=== PATIENT | female | born 1985 | race Caucasian/White ===

== ENCOUNTER 2016-10-09 08:22 | Emergency (ER) | payer OTHER ==
[~2016-10-09] VITALS: Ht 157.5 cm; Wt 90.3 kg
[~2016-10-09 08:22] MED LIST: DEPO-PROVER150 MG/ML IM; PROVENTIL,2.5 MG/3 M IH; VENTOLIN HFA18 GM IH; VICODIN 5-3001 EACH PO
[2016-10-09 09:18] LABS: BASOPHIL COUNT 0.1 K/uL (0-0.1); EOSINOPHIL (%) 1.9 % (0-5); EOSINOPHIL COUNT 0.1 K/uL (0-0.3); HEMATOCRIT 40.9 % (36.0-46.0); IMMATURE GRANULOCYTE (%) 0.3 % (0.0-0.7); IMMATURE GRANULOCYTE COUNT 0.2 K/uL; LYMPHOCYTE COUNT 2.1 K/uL (1.0-2.8); MCH 29.1 PG (29.0-34.0); MCV 88.1 FL (83-99); MEAN PLAT.VOLUME 9.8 uM^3 (9.5-12.4); MONOCYTE (%) 8.2 % (3-12); MONOCYTE COUNT 0.6 K/uL (0-0.8); NEUTROPHIL (%) 60.4 % (45-76); NEUTROPHIL COUNT 4.4 K/uL (1.8-6.4); PLATELET COUNT 299 K/uL (156-360); RBC DIS.WIDTH-CV 12.4 % (11.8-14.6); RBC DIS.WIDTH-SD 39.5 % (39-53); RED BLOOD COUNT 4.64 M/uL (3.80-5.20); WHITE BLOOD COUNT 7.4 K/uL (4.1-10.2)
[2016-10-09 09:29] LABS: CHLORIDE 109 mEq/L (99-109); POTASSIUM 4.3 mEq/L (3.7-5.4); SODIUM 139 mEq/L (136-147)
[2016-10-09 09:30] LABS: GLUCOSE 80 mg/dL (70-99)
[2016-10-09 09:32] LABS: ANION GAP 9 MEQ/L (2-14)
[2016-10-09 09:34] LABS: GFR ESTIMATE (CALCULATED) > 59 mL/min/
[2016-10-09 09:35] LABS: UREA NITROGEN (BUN) 12 mg/dL (9-23)
[2016-10-09 09:36] LABS: D-DIMER ELISA 0.39 mg/L FEU (< 0.57); INTER. NORMALIZED RATIO 1.1; PROTHROMBIN TIME 10.7 (9.2-11.2); PTT 27.2 (25-32)
[2016-10-09 09:39] LABS: TROP-I INTERPRETATION NEGATIVE; TROPONIN-I < 0.01 ng/mL (0.0-0.30)
[2016-10-09 12:08] LABS: TROP-I INTERPRETATION NEGATIVE; TROPONIN-I < 0.01 ng/mL (0.0-0.30)
[2016-10-09 13:03] VITALS: BP 111/83
== END 2016-10-09 13:16 | disposition home or self-care (01) ==
LOC: EME 08:22
PROVIDERS: Emergency Medicine
DX: R07.89 Other chest pain (principal); J40 Bronchitis, not specified as acute or chronic; Z88.1 Allergy status to other antibiotic agents
CPT/HCPCS: 71010; 80048; 84484; 85025; 85379; 85610; 85730; 93005; 99281; 99285; J2405

== ENCOUNTER 2017-09-05 08:23 | Emergency (ER) | payer OTHER ==
[~2017-09-05] VITALS: Ht 160 cm; Wt 80.8 kg
[2017-09-05] MEDS ORDERED: ROBITUSSIN NIG237 ML PO (10:00)
[2017-09-05] MEDS ORDERED: FLONASE16 G1 BOTH NARES (10:00)
[2017-09-05] MEDS ORDERED: TESSALON200 MG PO (10:00)
[2017-09-05 10:09] VITALS: BP 120/74
== END 2017-09-05 10:10 | disposition home or self-care (01) ==
LOC: EME 08:23
DX: J06.9 Acute upper respiratory infection, unspecified (principal); R51 Headache; Z88.1 Allergy status to other antibiotic agents
CPT/HCPCS: 87651 90; 99281; 99284

== ENCOUNTER 2018-04-04 10:49 | Outpatient (CLI) | payer OTHER ==
[~2018-04-04] VITALS: Ht 160 cm; Wt 77.1 kg
[~2018-04-04 10:49] MED LIST changes: +FLONASE16 G1 BOTH NARES; +ROBITUSSIN NIG237 ML PO; +TESSALON200 MG PO
[2018-04-04 11:25] VITALS: BP 103/60
[2018-04-04] MEDS ORDERED: PRENATAL TABLE1 EAC3 PO (11:38)
[2018-04-04] MEDS ORDERED: FIORICET 50-301 EAC1 PO (11:38)
[2018-04-04 13:55] LABS: SOURCE SWAB
[2018-04-04 14:08] LABS: BILIRUBIN NEGATIVE; BLOOD NEGATIVE; COLOR YELLOW ((YELLOW)); GLUCOSE (STRIP) NEGATIVE; KETONES NEGATIVE; LEUKOCYTES NEGATIVE; NITRITE NEGATIVE; PROTEIN (STRIP) NEGATIVE; SPECIFIC GRAVITY 1.009 (1.000-1.030); UROBILINOGEN 0.2 MG/DL (0.2-1.0)
[2018-04-04 14:09] LABS: APPEARANCE CLEAR ((CLEAR))
[2018-04-04 14:17] LABS: AMPHETAMINE NEGATIVE (500 ng/mL); BARBITURATES NEGATIVE (200 ng/mL); BENZODIAZEPINES NEGATIVE (150 ng/mL); BUPRENORPHINE NEGATIVE (10 ng/mL); COCAINE NEGATIVE (150 ng/mL); METHADONE NEGATIVE (200 ng/mL); METHAMPHETAMINE NEGATIVE (500 ng/mL); OPIATES (MORPHINE) NEGATIVE (100 ng/mL); OXYCODONE NEGATIVE (100 ng/mL); PHENCYCLIDINE NEGATIVE (25 ng/mL); PROPOXYPHENE NEGATIVE (300 ng/mL); TRICYCLIC ANTIDEPRESSANTS NEGATIVE (300 ng/mL)
[2018-04-04 14:20] LABS: THC CANNABINOIDS NEGATIVE (50 ng/mL)
[2018-04-04 14:22] VITALS: BP 112/65
[2018-04-04 15:57] LABS: CANDIDA DNA PROBE NEGATIVE; GARDNERELLA DNA PROBE NEGATIVE; TRICHOMONAS DNA PROBE NEGATIVE
== END 2018-04-04 15:00 | disposition home or self-care (01) ==
LOC: LDRP-OP 10:49 → 2WEST 10:50
PROVIDERS: Advanced Practice Midwife
DX: O26.899 Other specified pregnancy related conditions, unspecified trimester (principal); Z3A.00 Weeks of gestation of pregnancy not specified
CPT/HCPCS: 59025; 81003; 87081; 87086; 87480; 87491; 87510; 87591; 87660; G0378

== ENCOUNTER 2018-04-27 02:51 | Outpatient (CLI) | payer OTHER ==
[~2018-04-27] VITALS: Ht 160 cm; Wt 81.6 kg
[~2018-04-27 02:51] MED LIST changes: +FIORICET 50-301 EAC1 PO; +PRENATAL TABLE1 EAC3 PO
[2018-04-27 03:20] VITALS: BP 121/63
== END 2018-04-27 04:22 | disposition home or self-care (01) ==
LOC: LDRP-OP 02:51 → 2WEST 02:52 → LDRP-OP 06-16 15:15
DX: O26.893 Other specified pregnancy related conditions, third trimester (principal); Z3A.37 37 weeks gestation of pregnancy; R10.9 Unspecified abdominal pain; Z87.891 Personal history of nicotine dependence
CPT/HCPCS: 59025; G0378